=== PATIENT | female | born 1960 | race Caucasian/White ===

== ENCOUNTER → 2016-09-29 | Outpatient (CLI) | payer OTHER ==
--- NOTE | 2016-09-29 17:11 | CT ---
CT Left Lower Extremity With Attention Left Knee History: Preoperative evaluation for left knee arthroplasty. Pain. Technique: Spiral imaging was obtained through the left knee at 1.25 mm slice thickness along with sp iral imaging through the left hip and left ankle at 2.5 mm slice thickness. Data was transmitted for subsequent BRIE knee replacement. Dose reduction technique was utilized. Findings: Images of the left hip demonstrate mild enthesopathy at the common hamstring tendon origin at the ischial tuberosity. Images of the knee demonstrate tricompartment degenerative change of the right knee. There is severe subarticular sclerosis and periarticular spurring in the medial compartment with prominent subcortica l cysts, particularly at the medial tibial plateau. Milder degenerative change is seen in the lateral compartment. There is evidence of underlying chondrocalcinosis. Severe degenerative change is seen i n the patellofemoral compartment, more predominant laterally, with [id number] articulation. Subcort ical sclerosis and cystic change is seen more predominant laterally with more predominant lateral per iarticular spurring. There is a lateral tilt and subluxation of the patella. Mild suprapatellar joint effusion. Loose body is seen anterior to the anterior horn medial meniscus. Images of the ankle are unremarkable. Impression: Severe tricompartment degenerative change of the left knee is more severe in the medial a nd patellofemoral compartment as above. Of note is there is prominent subcortical cystic change in th e medial tibial plateau. Mild suprapatellar joint effusion. Chondrocalcinosis. Loose body. Data was transmitted for subsequent BRIE knee replacement surgery.
== END ==
LOC: FIMAGING 15:38
PROVIDERS: ATTEND Orthopaedic Surgery
DX: Z01.818 Encounter for other preprocedural examination (principal); M17.12 Unilateral primary osteoarthritis, left knee; M23.42 Loose body in knee, left knee; M11.262 Other chondrocalcinosis, left knee; M25.462 Effusion, left knee

== ENCOUNTER 2016-10-04 10:11 | Inpatient (IN) | payer OTHER ==
[~2016-10-04 10:11] MED LIST: ACETAMINOPHEN 325 MG TAB PO ONE; CEFAZOLIN 2 GM/DEXTR 100 ML IV ONE; CHLORHEXIDINE GLUC HIBICLENS 118 ML BTL TP ONE; DEXAMETHASONE 4 MG/ML VIAL IVP ONE; FAMOTIDINE 20 MG TAB PO ONE; ROPI/epiNEPH/KETOROLAC JOINT COCKTAIL IU ONE; TRANEXAMIC ACID 3,000 MG in NS 50 ML IRR ONE
[2016-10-04] MEDS ORDERED: FAMOTIDINE 20 MG TAB ONE (10:29)
[2016-10-04] MEDS ORDERED: DEXAMETHASONE 4 MG/ML VIAL ONE (10:29)
[2016-10-04] MEDS ORDERED: ACETAMINOPHEN 325 MG TAB ONE (10:29)
[2016-10-04] MEDS ORDERED: CEFAZOLIN 2 GM/DEXTROSE/100 ML BAG IV ONE (10:30)
[2016-10-04] MEDS ORDERED: TRANEXAMIC ACID 3,000 MG/50 ML BAG IRR ONE (10:36)
[2016-10-04] MEDS ORDERED: VANCOMYCIN 1 GM VIAL IV ONE ×2 (10:36)
[2016-10-04] MEDS ORDERED: SKIN ADHESIVE (DERMABOND) 1 EACH TP ONE (10:36)
[2016-10-04] MEDS ORDERED: PROPOFOL/EMULSION 500 MG/50 ML BOTTLE IV ONE ×2 (11:17→13:48)
[2016-10-04] MEDS ORDERED: LIDOCAINE 1% 5 ML SDV ID PRN (11:23)
[2016-10-04] MEDS ORDERED: LR 1,000 ML IV ONE (11:23)
[2016-10-04] MEDS ORDERED: MIDAZOLAM 2 MG/2 ML VIAL ONE (12:37)
[2016-10-04] MEDS ORDERED: oxyCODONE IR 5 MG TAB PO PRN (12:45)
[2016-10-04] MEDS ORDERED: PROMETHAZINE HCL 25 MG/ML INJ IVP PRN (12:45)
[2016-10-04] MEDS ORDERED: ONDANSETRON 4 MG/2 ML VIAL IVP PRN (12:45)
[2016-10-04] MEDS ORDERED: DIPHENOXYLATE/ATROPINE LOMOTIL 1 TAB PO PRN (12:45)
[2016-10-04] MEDS ORDERED: BISACODYL 10 MG SUPP PR PRN (12:45)
[2016-10-04] MEDS ORDERED: TEMAZEPAM 15 MG CAP PO PRN (12:45)
[2016-10-04] MEDS ORDERED: METOCLOPRAMIDE 10 MG/2 ML VIAL IVP PRN (12:45)
[2016-10-04] MEDS ORDERED: PROMETHAZINE HCL 25 MG SUPPR PR PRN (12:45)
[2016-10-04] MEDS ORDERED: PHARMACY PAIN CONSULT 1 EA MISC PRN (12:45)
[2016-10-04] MEDS ORDERED: CYCLOBENZAPRINE 10 MG TAB PO PRN (12:45)
[2016-10-04] MEDS ORDERED: ONDANSETRON DISINTEGRATING 4 MG TAB PO PRN (12:45)
[2016-10-04] MEDS ORDERED: LACTULOSE 20 GM/30 ML UDCUP PO PRN (12:45)
[2016-10-04] MEDS ORDERED: diphenhydrAMINE 25 MG CAP PO PRN (12:45)
[2016-10-04] MEDS ORDERED: MAGNESIUM HYDROXIDE 30 ML UDCUP PO PRN (12:45)
[2016-10-04] MEDS ORDERED: POLYETHYLENE GLYCOL 3350 17 GM PKT PO PRN (12:45)
[2016-10-04] MEDS ORDERED: LR 1,000 ML IV SCH (13:00)
[2016-10-04] MEDS ORDERED: ONDANSETRON 4 MG/2 ML VIAL ONE (13:57)
[2016-10-04] MEDS ORDERED: BUPIVACAINE 0.5% 30 ML SDV ONE (13:59)
[2016-10-04] MEDS ORDERED: ceFAZolin 2 GM/DEXTROSE 100 ML IV SCH (14:00)
--- NOTE | 2016-10-04 14:14 | POSTOPPROG ---
Post Op Note Date of Operation: 10/04/16 Surgeon: Unique Doty Pharmaceutical Engineer: Shawna Doty PAc Anesthesiologist: Isacc Anesthesia: Spinal Pre-op Diagnosis: L knee djd Post-op Diagnosis: same Indication: pain Procedure: L TKA with robotic assist Findings: DJD knee Inf/Abcess present in the surg proc area at time of surgery?: No EBL: 50-100
--- NOTE | 2016-10-04 14:53 | DX ---
Left knee, Two Views History: Postop alignment check. Findings: A left knee prosthesis is present and is in excellent postoperative alignment. There is gas in the soft tissues as expected postoperatively. Impression: Excellent postoperative alignment.
[2016-10-04] MEDS: ACETAMINOPHEN 325 MG TAB PO SCH (17:26)
--- NOTE | 2016-10-04 19:29 | GOP ---
[f rep st] OPERATIVE REPORT DATE OF OPERATION: 10/04/2016 SURGEON: Samantha Doty MD SCOREBOARD OPERATOR: Shawna Doty PA-C ANESTHESIA: Spinal. PREOPERATIVE DIAGNOSIS: Left knee osteoarthritis. POSTOPERATIVE DIAGNOSIS: Left knee osteoarthritis. PROCEDURE PERFORMED: Left total knee arthroplasty with computer navigation and robotic assist. FINDINGS: ESTIMATED BLOOD LOSS: 30 cc. INDICATIONS: This is a 56-year-old female with severe and progressive pain and deformity of the left knee unresponsive to conservative care. Risks and benefits of the surgical intervention were explained in detail. DESCRIPTION OF PROCEDURE: The patient was brought to the operative room and placed on the table in the supine position. Spinal anesthesia was induced without difficulty. A pneumatic tourniquet was applied about the left proximal thigh, and the leg was prepped and draped in a sterile fashion. The leg daniel was applied. After exsanguination by elevation the tourniquet was inflated to 250 mm of mercury. Incision was made anterior medial from the tibial tuberosity to a point 2 cm proximal to the superior pole of the patella. Medial parapatellar arthrotomy was carried out from the superior pole of the patella and posteriorly in line with the fibers of the Type II VMO. The medial collateral ligament was elevated and the infrapatellar fat pad was resected. The patella was everted and the articular surface was excised. A 29 mm patellar button was placed. Attention was turned first to the distal aspect of the left femur. At 3 cm proximal to the medial rise of the femur, 2 percutaneous half pins were placed for fixation of the femoral array. In a similar fashion, 2 pins were placed anteromedial on the tibia for fixation of the tibial array. External land marking and registration of the hip center was performed without difficulty. Internal femoral and tibial registration was carried out without difficulty and the femoral and tibial checkpoints were placed and verified for accuracy. Attention was turned to the femur. The foot print for the size 2 femoral component was cut with the saw using the [employer] robotic system and verified for accuracy against the CT based plan. In a similar fashion, saw was used to cut the footprint for the size 2 tibial component using the [employer] system and verified for accuracy against the CT based plan. The tibial articular surface was excised without difficulty, followed by the intercondylar box cut. The knee was extended and the remnants of the medial and lateral meniscus were excised. The posterior capsule was injected with ropivacaine, epinephrine and Toradol. A size 2 MIS mini-keel tibial tray was positioned. Trial reduction was then carried out. There was excellent range of motion, alignment, and stability using the 11 mm polyethylene. All trials were then removed. The joint was thoroughly irrigated and carefully dried. Two packages of cement and 2 grams of vancomycin were mixed in the vacuum mixer and placed on the fixation surfaces of all surfaces of the components. The components were implanted and all excess cement was thoroughly removed. The permanent 11 mm polyethylene was placed without difficulty. The tourniquet was deflated and all bleeders were coagulated. The wound was thoroughly irrigated and closed using interrupted sutures of 2-0 Vicryl for the joint capsule. The subcu was closed with 3-0 Vicryl and the skin with 4-0 Monocryl. Dermabond and Steri-Strips were applied followed by a compressive dressing. The patient was then moved from the operating room to the recovery room in good condition, having tolerated the procedure well. PATHOLOGY: Severe patellofemoral and tricompartmental osteoarthritis. /[id number]/MODL MTDD
[2016-10-04] MEDS: ceFAZolin 2 GM in D5W 100 ML IV SCH (20:53)
[2016-10-04] MEDS: SENNOSIDES/DOCUSATE SODIUM TAB PO SCH (20:54)
[2016-10-04] MEDS: FAMOTIDINE 20 MG TAB PO SCH (20:54)
[2016-10-04] MEDS: ASPIRIN 325 MG TAB PO SCH (20:54)
[2016-10-05] MEDS: ACETAMINOPHEN 325 MG TAB PO SCH ×3 (00:09→10:33)
[2016-10-05 04:42] VITALS: RESP 14
[2016-10-05] MEDS: ceFAZolin 2 GM in D5W 100 ML IV SCH (05:24)
[2016-10-05 05:32] LABS: HEMATOCRIT 38.5 % (38.0-47.0); HEMOGLOBIN 12.9 g/dL (12.6-16.3)
[2016-10-05] MEDS ORDERED: LEVOTHYROXINE 137 MCG TAB PO SCH (06:00)
[2016-10-05] MEDS: FAMOTIDINE 20 MG TAB PO SCH (07:54)
[2016-10-05] MEDS: SENNOSIDES/DOCUSATE SODIUM TAB PO SCH (07:54)
[2016-10-05] MEDS: ASPIRIN 325 MG TAB PO SCH (07:55)
[2016-10-05 07:56] VITALS: BP 147/82; PULSE 63; TEMP 97.5; O2SAT 99
[2016-10-05] MEDS ORDERED: FLU VACC QS 2016-17(3-64YR)/PF 0.5 ML SYR (FLUARIX QUAD) IM ONE (07:58)
--- NOTE | 2016-10-05 09:29 | SOAPPROG ---
SOAP Progress Note Assessment/Plan: Assessment: Patient is doing well POD 1 s/p LTKA 1.Pain management: pain is well controlled on oral pain meds 2.Anemia: level is expected initially postop. Asymptomatic. Cont to monitor for symptoms 3.VTE ppx: recommend aspirin 325mg daily. Cont BRENDAN hosvalentin and SCD 4. d/c planning: d/c to home today pending release from PT. Plan: 10/05/16 09:28 Subjective: Mo is doing well this morning, denies SOB, chest pain and N/V. Objective: Vital Signs Temp Pulse Resp BP Pulse Ox 36.4 C 63 14 147/82 H 99 10/05/16 07:55 10/05/16 07:55 10/05/16 07:55 10/05/16 07:55 10/05/16 07:55 Laboratory Results 10/05/16 04:43 10/04/16 10/05/16 10/06/16 05:59 05:59 05:59 Intake Total 670 1200 Output Total 1015 Balance -345 1200 LLE: incision dressing is clean and dry, NVI, +pf/df ICD10 Worksheet Patient Problems: Problems Problem Status Diagnosed Primary localized osteoarthritis of left knee Acute
--- NOTE | 2016-10-05 10:32 | GDS ---
[f rep st] DISCHARGE SUMMARY ADMISSION DIAGNOSIS: Left knee osteoarthritis. DISCHARGE DIAGNOSIS: Left knee osteoarthritis. PROCEDURE: Left total knee arthroplasty. VTE PROPHYLAXIS: Aspirin recommended for 3 weeks daily. BRIEF DESCRIPTION OF HOSPITAL STAY: Patient was admitted for an elective joint arthroplasty. The pa tient tolerated the procedure well and has passed physical therapy. The patient was given appropriat e antibiotic prophylaxis and venous thromboembolism prophylaxis. The patient's pain was well control led on oral pain medication, patient was holding down food, and had urinated. Decision was made to d ischarge the patient. The patient was given post-operative prescriptions pre-operatively. PLAN: Please follow up as scheduled on October 24, 2016 at 1:45 p.m. /[id number]/MODL
== END 2016-10-05 11:43 | disposition home or self-care (01) | DRG 470 ==
LOC: F3N 10:11
PROVIDERS: ADMIT Orthopaedic Surgery; ATTEND Orthopaedic Surgery
PROC: 0SRD0J9 Replacement of Left Knee Joint with Synthetic Substitute, Cemented, Open Approach (ICD-10-PCS; principal; 2016-10-04 12:15)
PROC: 8E0Y0CZ Robotic Assisted Procedure of Lower Extremity, Open Approach (ICD-10-PCS; principal; 2016-10-04 12:15)
DX: M17.12 Unilateral primary osteoarthritis, left knee (principal); E03.9 Hypothyroidism, unspecified; Z23 Encounter for immunization
CPT/HCPCS: 97161-GP; 97165-GO; C1713; G0008; J0171; J0690; J1100; J1885; J2250; J2405; J2704; J2795; J3370

== ENCOUNTER → 2018-11-15 | Outpatient (CLI) | payer OTHER | LOC: FIMAGING 12:56 | PROVIDERS: ATTEND Internal Medicine | DX: Z12.31 Encounter for screening mammogram for malignant neoplasm of breast (principal) ==